=== PATIENT | male | born 1990 | race Caucasian/White ===

== ENCOUNTER 2018-10-05 10:21 | Day surgery (SDC) | payer BC ==
[~2018-10-05] VITALS: Ht 177.8 cm; Wt 93.4 kg
[~2018-10-05 10:21] MED LIST: BUPROPION HCL150 M1 PO
[2018-10-05 11:01] VITALS: Ht 177.8 cm; Wt 93.4 kg
--- NOTE | 2018-10-05 16:46 | NUR ---
1640 FL DIET SERVED
--- NOTE | 2018-10-05 16:59 | NUR ---
1655 PT ATE 90% FL DIET REQUESTS DC IV DC'D WITH CATH INTACT DC INSTS REVIEWED VOICED UNDERSTANDING RX GIVEN GETTING DRESSED.
--- NOTE | 2018-10-05 19:19 | OP ---
PATIENT NAME: TI US MEDICAL RECORD: [id number] :88 LOCATION:[facility] ADMISSION DATE: SURGEON: KAILYN NICHOLSON MD DATE OF OPERATION: 10/05/2018 SURGEON: Kailyn Nicholson MD ANESTHESIA: TIVA by Sanjiv Franco CRNA DIAGNOSIS: Male sterilization. PROCEDURE: Vasectomy. SPECIMENS: Left vas deferens and right vas deferens. ESTIMATED BLOOD LOSS: None. CLINICAL HISTORY: This is a 28-year-old male, who wishes to have a vasectomy performed. He is and he has 2 children. He and his do not want any further children. He is not allergic to any medications. He was given Ancef manager production to the OR. DESCRIPTION OF PROCEDURE: The patient was given IV sedation in supine position. I palpated for the vas deferens on the right side. This was palpated and entrapped between the fingers. We then put a towel clip proximally and distally to trap the vas deferens under a segment of the scrotal skin. The scrotal skin overlying the vas deferens segment was infiltrated with 0.25% Marcaine with epinephrine. Incision was then made using a #15 blade. Using a mosquito, we were able to dissect the vas deferens out. The vas was then clamped proximally and distally and the intervening segment was removed using a scalpel. This was sent to pathology for identification and diagnosis. The vasal ends were cauterized using a Bovie. The vasal ends were also ligated using a 3-0 Prolene tie. The vasal ends were then placed back in the hemiscrotum. The hemiscrotum was reapproximated using simple interrupted 4-0 Monocryl. The identical procedure was done on the left side. At the end of the procedure, fluffs and mesh panties were given to the patient. I will see the patient in followup in 2 weeks' time. TRANSINT:[id number] Voice Confirmation ID: [id number] DOCUMENT ID: [id number] KAILYN NICHOLSON MD at [id number] CC: [id number] DICTATION DATE: 10/05/18 1518 IP LITIGATION ASSOCIATE: 10/05/18 1554 [facility] 10/05/18 [id number] [place] [id number]
== END 2018-10-05 17:00 | disposition home or self-care (01) ==
LOC: D.OPS 10:21 → D.PAN 13:15 → D.OPS 13:15
PROVIDERS: ATTEND Urology
DX: Z30.2 Encounter for sterilization (principal); Z01.812 Encounter for preprocedural laboratory examination

== ENCOUNTER → 2018-11-05 09:20 | Outpatient (CLI) | payer BC ==
[2018-10-05 11:01] VITALS: BMI 29.6
== END | disposition home or self-care (01) ==
LOC: D.LAB 09:20
PROVIDERS: ATTEND Urology
DX: Z31.41 Encounter for fertility testing (principal)